=== PATIENT | male | born 1935 | race Caucasian/White ===

== ENCOUNTER 2018-02-05 14:16 | Inpatient (IN) | payer MEDICARE, MEDICAID ==
--- NOTE | 2018-02-05 14:40 | ED Physician Chart ---
ED Chief Complaint/HPI - Patient Information Date Seen:: 02/05/18 Time Seen:: 14:15 Chief Complaint:: Agitation History of Present Illness:: onset x 3 days of agitation and confusion; no report of trauma, LOC, H/As, S/T, SIs, neck pain, C/P, SOB, abd. Pain, A/N/V/D/C, fever, chills, or urinary s/s Historian:: Patient, Family Member Review:: Nurse's Note Reviewed, Old Chart Reviewed ED Review of Systems - Review of Systems General/Constitutional: No fever, No chills, No weight loss, No weakness, No diaphoresis, No edema, No loss of appetite Skin: No skin lesions, No rash, No bruising Head: No headache, No light-headedness Eyes: No loss of vision, No pain, No diplopia ENT: No earache, No nasal drainage, No sore throat, No tinnitus Neck: No neck pain, No swelling, No thyromegaly, No stiffness, No mass noted Cardio Vascular: No chest pain, No palpitations, No PND, No orthopnea, No edema Pulmonary: No SOB, No cough, No sputum, No wheezing GI: No nausea, No vomiting, No diarrhea, No pain, No melena, No hematochezia, No constipation, No hematemesis G/U: No dysuria, No frequency, No hematuria, No nacturia Musculoskeletal: No bone or joint pain, No back pain, No muscle pain Endocrine: No polyuria, No polydipsia Psychiatric: Prior psych history, Depression, Anxiety, No suicidal ideation, No homicidal ideation, Auditory hallucination, No visual hallucination Hematopoietic: No bruising, No lymphadenopathy Allergic/Immuno: No urticaria, No angioedema Neurological: No syncope, No focal symptoms, No weakness, No paresthesia, No headache, No seizure, No dizziness, Confusion, No vertigo ED Past Medical History - Past Medical History Obtainable: Yes Past Medical History: HTN, DM, Dyslipidemia, PUD/GERD, Dementia Family History: Diabetes Melitus, HTN Social History: Non Smoker, No Alcohol, No Drug Use, Surgical History: None Psychiatricy History: Schizophrenia, Bipolar, Dementia Medication: Reviewed Family Medical History - Family Member Mother History Unknown: Yes ED Physical Exam - Physical Examination General/Constitutional: Awake, Well-developed, well-nourished, Alert, No distress, GCS 15, Non-toxic appearing, Ambulatory Head: Atraumatic Eyes: Lids, conjuctiva normal, PERRL, EOMI Skin: Nl inspection, No rash, No skin lesions, No ecchymosis, Well hydrated, No lymphadenopathy ENMT: External ears, nose nl, TM canals nl, Nasal exam nl, Lips, teeth, gums nl , Oropharynx nl, Tonsils nl Neck: Nontender, Full ROM w/o pain, No JVD, No nuchal rigidity, No bruit, No mass, No stridor Respiratory: Nl effort/Exclusion, Clear to Auscultation, No Wheeze/Rhonchi/Rales Cardio Vascular: RRR, No murmur, gallop, rubs, NL S1 S2, Carotid/Femoral/Distal pulses equal bilaterally GI: No tenderness/rebounding/guarding, No organomegaly, No hernia, Normal BS's, Nondistended, No mass/bruits, No McBurney tenderness : No CVA tenderness Extremities: No tenderness or effusion, Full ROM, normal strength in all extremities, No edema, Normal digits & nails Neuro/Psych: Alert/oriented, DTR's symmetric, Normal sensory exam, Normal motor strength, Judgement/insight normal, Mood normal, Normal gait, No focal deficits Other Neuro/Psych comments:: + Psychomotor Agitation; no SIs; Mood/Affect: Labile Misc: Normal back, No paraspinal tenderness ED Labs/Radiology/EKG Results - Lab Results Comments:: Reviewed - EKG Interpretations EKG Time:: 14:37 Rate & Rhythm: 82; NSR Comments:: non-specific st-t changes ED Septic Shock - . Is Septic Shock (SBP<90, OR Lactate>4 mmol\L) present?: No ED Reassessment (Disposition) - Reassessment Reassessment Condition:: Improved - Diagnosis Diagnosis:: Agitation; Psychosis; Medical Clearance; Dementia; DM; Hyperglycemia; Dehydration; Bipolar Disorder - Aftercare/Follow up Instructions Aftercare/Follow-Up Instructions:: Counseled pt regarding lab results/diagnosis & need follow up, Counseled pt & family regarding lab results/diagnosis & need follow up - Patient Disposition Discharge/Transfer:: Acute Care w/in this hosp Admitted to:: [facility] Condition at Disposition:: Stable, Improved
[2018-02-05 14:59] LABS: % BASOPHILS 0.5 % (0.0-2.0); % EOSINOPHILS 3.8 % (0.0-5.0); % LYMPHOCYTES 26.2 % (20.0-50.0); % NEUTROPHILS 61.5 % (40.0-80.0); EOSINOPHILE ABSOLUTE 0.3 Th/cmm (0.1-0.4); HEMATOCRIT 37.4 % (41.0-60); HEMOGLOBIN 12.4 gm/dL (12-16); LYMPHOCYTE ABSOLUTE 1.7 Th/cmm (1.5-3.0); MEAN CORPUSCULAR HEMOGLOBIN 30.5 pg (27.0-31.0); MEAN CORPUSCULAR HGB CONC 33.1 pg (28.0-36.0); MEAN PLATELET VOLUME 8.7 fl; MONOCYTE ABSOLUTE 0.5 Th/cmm (0.3-1.0); NEUTROPHILE ABSOLUTE 4.1 Th/cmm (1.8-8.0); PLATELET COUNT 170 Th/cmm (150-400); RED BLOOD COUNT 4.06 Mil/cmm (3.80-5.80); RED CELL DISTRIBUTION WIDTH 12.5 % (11.5-20.0); WHITE BLOOD COUNT 6.6 Th/cmm (4.8-10.8)
[2018-02-05 15:09] LABS: ACETAMINOPHEN < 10.0 ug/mL (10.0-30.0); ALB/GLOB RATIO 1.3 (1.0-1.8); ALBUMIN 3.9 gm/dL (4.2-5.5); ALKALINE PHOSPHATASE 59 U/L (34-104); ANION GAP 13.2 (7.0-16.0); BILIRUBIN,TOTAL 0.4 mg/dL (0.3-1.0); BUN - UREA NITROGEN 30 mg/dL (7-25); CALCIUM SERUM 8.5 mg/dL (8.6-10.3); CARBON DIOXIDE 21.9 mEq/L (21.0-31.0); CHLORIDE 104 mEq/L (98-107); CHOLESTEROL 197 mg/dL (<200); CREATININE - SERUM 1.7 mg/dL (0.7-1.3); GLUCOSE 359 mg/dL (70-105); HDL -HIGH DENSITY LIPOPROTEIN 41 mg/dL (23-92); POTASSIUM SERUM 4.1 mEq/L (3.5-5.1); SALICYLATES (ASPIRIN) < 25.0 mg/L (30.0-100.0); SGOT 10 U/L (13-39); SGPT/ALT 8 U/L (7-52); SODIUM SERUM 135 mEq/L (136-145); TRIGLYCERIDES 252 mg/dL (<150)
[2018-02-05 15:29] LABS: URINE SOURCE CLEAN C
[2018-02-05 15:32] LABS: URINE BILIRUBIN NEGATIVE (NEGATIVE); URINE BLOOD TRACE (NEGATIVE); URINE GLUCOSE (UA) >=1000 mg/dL (NEGATIVE); URINE KETONE NEGATIVE (NEGATIVE); URINE LEUKOCYTE ESTERASE NEGATIVE (NEGATIVE); URINE MICROSCOPIC INDICATED? YES; URINE NITRATE NEGATIVE (NEGATIVE); URINE PROTEIN NEGATIVE (NEGATIVE); URINE UROBILINOGEN 0.2 E.U./dL (0.2 - 1.0)
[2018-02-05 15:36] LABS: URINE CLARITY CLEAR (CLEAR); URINE COLOR YELLOW
[2018-02-05 15:38] LABS: URINE AMORPHOUS SEDIMENT FEW URATES (NONE SEEN); URINE BACTERIA FEW /hpf (NONE SEEN); URINE EPITHELIAL CELLS FEW /lpf (FEW); URINE WBC 0-2 /hpf (0-5)
[2018-02-05 15:47] LABS: AMPHETAMINE URINE NEGATIVE (NEGATIVE); BARBITURATES URINE NEGATIVE (NEGATIVE); BENZODIAZEPINES QUAL URINE NEGATIVE (NEGATIVE); CANNABINOID THC NEGATIVE (NEGATIVE); COCAINE METABOLITE QUAL URINE NEGATIVE (NEGATIVE); METHADONE URINE NEGATIVE (NEGATIVE); METHAMPHETAMINES QUAL URINE NEGATIVE (NEGATIVE); OPIATES (MORPHINE) QUAL. URINE NEGATIVE (NEGATIVE); PHENCYCLIDINE (PCP) URINE NEGATIVE (NEGATIVE); TRICYCLICS (TCA) QUAL. URINE NEGATIVE (NEGATIVE)
[2018-02-05] MEDS ORDERED: INSULIN HUMAN REGULAR 100 UNITS/ML UNIT SUBQ ONE (15:49)
[2018-02-05] MEDS ORDERED: INSULIN ASPART, RECOMBINANT 100 UNITS/ML SUBQ ONE (15:59)
[2018-02-05] MEDS ORDERED: Magnesium Hydroxide (MOM) 30 mL UDC PO PRN (18:44)
[2018-02-05] MEDS ORDERED: Maalox 30 mL Cup PO PRN (18:44)
[2018-02-05 19:29] LABS: CHOLESTEROL 196 mg/dL (<200); HDL -HIGH DENSITY LIPOPROTEIN 42 mg/dL (23-92); TRIGLYCERIDES 249 mg/dL (<150)
--- NOTE | 2018-02-05 20:47 | History & Physical ---
ADMIT DATE: 02/05/2018 HISTORY OF PRESENT ILLNESS: The patient is an 82-year-old male with long history of diabetes mellitus, hypertension, hypothyroidism, benign prostatic hypertrophy, dementia; admitted to [facility] under Dr. Coronel's service for evaluation and treatment. The patient denies any chest pain, shortness of breath, nausea, vomiting, fever, or chills. PAST MEDICAL HISTORY: Significant for diabetes mellitus, hypertension, hypothyroidism, benign prostatic hypertrophy, dementia, and psychosis. PAST SURGICAL HISTORY: No recent surgery. ALLERGIES: None. MEDICATIONS: Follow admission reconciliation. SOCIAL HISTORY: Nonsmoker. No alcohol, no drugs. FAMILY HISTORY: Noncontributory. REVIEW OF SYSTEMS: RENAL SYSTEM: No history of chronic renal disorder. CARDIOVASCULAR SYSTEM: No coronary artery disease. ENDOCRINE: He has history of diabetes mellitus and hypothyroidism. GASTROINTESTINAL: No upper or lower gastrointestinal bleed. NEUROLOGICAL SYSTEM: No seizure disorder. SKELETOMUSCULAR SYSTEM: No muscular dystrophy. HEMATOLOGICAL SYSTEM: No bleeding tendency. RESPIRATORY SYSTEM: As asthma. GENITOURINARY SYSTEM: No dysuria or hematuria. PHYSICAL EXAMINATION: GENERAL: The patient is awake, alert, not fully oriented. VITAL SIGNS: Temperature 98.9, heart rate 76, and blood pressure 143/60. HEENT: Normocephalic. Pupils reactive to light and accommodation. Sclerae clear. NECK: Supple. Negative for lymphadenopathy, JVD, or bruit. CHEST: Entry of air bilateral normal. No rhonchi or wheezing. HEART: S1, S2 normal. No gallop rhythm. ABDOMEN: Soft, bowel sounds positive. EXTREMITIES: No edema. BACK: Normal vertebrae. SKIN: Intact. NEUROLOGIC: Awake, alert, mildly confused. No focal motor deficits. Cranial nerves II through XII are intact. ASSESSMENT: 1. Diabetes mellitus. 2. Hypertension. 3. Hypothyroidism. 4. Benign prostatic hypertrophy. 5. Dementia. 6. Psychosis. PLAN: The patient admitted to the hospital under Dr. Coronel's service. Problems addressed in hospitalization are dementia and psychosis. Problems to be addressed at discharge are hypertension, diabetes mellitus, hypothyroidism, benign prostatic hypertrophy, and the patient is medically stable for activity. Thank you, Dr. Coronel for asking me to see your patient. The patient is full code. The patient cleared for activity. [facility]# [id number]
[2018-02-05] MEDS: INSULIN ASPART SLIDING SCALE 100 UNITS/ML UNIT SUBQ SCH (21:25)
--- NOTE | 2018-02-06 03:15 | Psychiatric Evaluation ---
DATE OF SERVICE: 02/05/2018 Staff was spoke to. The patient is interviewed. IDENTIFYING DATA: The patient is an 82-year-old resident of [facility]. Information obtained directly interviewing the patient as well as reviewing the admission papers. JUSTIFICATION FOR HOSPITALIZATION: The patient is admitted for depression and changes in behavior. CHIEF COMPLAINT: "I am frustrated. "I don't know why I am here." HISTORY OF PRESENT ILLNESS: This is the first psychiatric hospitalization to [facility] for this 82-year-old who is reported to have been at the assisted living and is reported to have been getting easily upset, agitated, and the patient is getting frustrated. The patient has been diagnosed with depression and has been maintained on antidepressant medication. The patient has been admitted over here for stabilization. Sleep and appetite prior to the hospitalization are reported to be poor. PAST PSYCHIATRIC HISTORY: Details are not known. MEDICAL HISTORY: Physical examination is requested to be done by Dr. Shelton. SUBSTANCE ABUSE HISTORY: None. Physical examination requested by Dr. Paez. SUBSTANCE ABUSE HISTORY: None. PHYSICAL OR SEXUAL ABUSE HISTORY: None. LEGAL PROBLEMS: None at this time. STRENGTH AND ASSETS: The patient is motivated. MENTAL STATUS EXAMINATION: The patient is an 82-year-old, looking his stated age, superficially cooperative. Eye contact is poor. Mood is noted to be irritable. Affect is constricted. 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 He has been getting easily frustrated. Insight and judgment are very much limited. The patient's coping skills are noted to be very poor. DIAGNOSTIC IMPRESSION: AXIS 1: A. Depressive disorder, not otherwise specified. B. Dementia and behavioral change, secondary trait. AXIS II: None. AXIS III: As per the primary care physician. IMMEDIATE TREATMENT PLAN: The patient is going to be observed on inpatient unit, provided with supportive psychotherapy. The patient is going to be closely monitored. Once stabilized, the patient is going to be discharged to the family for followup on outpatient basis. JOB# [id number]
[2018-02-06] MEDS: Levothyroxine 0.05 Mg Tab PO SCH (06:42)
[2018-02-06] MEDS: INSULIN ASPART SLIDING SCALE 100 UNITS/ML UNIT SUBQ SCH ×4 (06:43→21:47)
[2018-02-06] MEDS ORDERED: Non-Formulary Item 1 EA (Sitagliptin Phosphate [Januvia] 100 MG) PO SCH (09:00)
[2018-02-06] MEDS ORDERED: GLIMEPIRIDE 1 MG PO SCH (09:00)
[2018-02-06] MEDS: Multivitamin Tab PO SCH (09:07)
[2018-02-06] MEDS: Escitalopram Oxalate 5 mg Tab PO SCH (09:08)
--- NOTE | 2018-02-06 10:11 | Progress Notes ---
DATE: 02/06/2018 SUBJECTIVE: Staff was spoken to. The patient is interviewed. Mood is noted to be depressed. Affect is constricted. The patient is isolative and withdrawn. Coping skills are noted to be poor. Sleep and appetite also noted to be very poor. The patient has been isolative and withdrawn at this time. ASSESSMENT: The patient is still depressed. PLAN: To continue the patient with supportive therapy. Encouraged the patient to verbalize the concerns rather than to act out. [facility]# [id number]
--- NOTE | 2018-02-06 20:16 | Internal Medicine Prog Note ---
Internal Medicine Subjective - Subjective Service Date: 02/06/18 Patient seen and examined:: with staff Patient is:: awake, verbal, arousable, in bed, talking, confused Per staff patient has:: no adverse event Internal Medicine Objective - Results Result Diagrams: 02/05/18 14:45 02/05/18 14:45 Recent Labs: Laboratory Last Values WBC 6.6 Th/cmm (4.8-10.8) 02/05/18 14:45 RBC 4.06 Mil/cmm (3.80-5.80) 02/05/18 14:45 Hgb 12.4 gm/dL (12-16) 02/05/18 14:45 Hct 37.4 % (41.0-60) L 02/05/18 14:45 MCV 92.0 fl (80-99) 02/05/18 14:45 MCH 30.5 pg (27.0-31.0) 02/05/18 14:45 MCHC Differential 33.1 pg (28.0-36.0) 02/05/18 14:45 RDW 12.5 % (11.5-20.0) 02/05/18 14:45 Plt Count 170 Th/cmm (150-400) 02/05/18 14:45 MPV 8.7 fl 02/05/18 14:45 Neutrophils % 61.5 % (40.0-80.0) 02/05/18 14:45 Lymphocytes % 26.2 % (20.0-50.0) 02/05/18 14:45 Monocytes % 8.0 % (2.0-10.0) 02/05/18 14:45 Eosinophils % 3.8 % (0.0-5.0) 02/05/18 14:45 Basophils % 0.5 % (0.0-2.0) 02/05/18 14:45 Sodium 135 mEq/L (136-145) L 02/05/18 14:45 Potassium 4.1 mEq/L (3.5-5.1) 02/05/18 14:45 Chloride 104 mEq/L (98-107) 02/05/18 14:45 Carbon Dioxide 21.9 mEq/L (21.0-31.0) 02/05/18 14:45 Anion Gap 13.2 (7.0-16.0) 02/05/18 14:45 BUN 30 mg/dL (7-25) H 02/05/18 14:45 Creatinine 1.7 mg/dL (0.7-1.3) H 02/05/18 14:45 Est GFR ( Amer) TNP 02/05/18 14:45 Est GFR (Non-Af Amer) TNP 02/05/18 14:45 BUN/Creatinine Ratio 17.6 02/05/18 14:45 Glucose 359 mg/dL (70-105) H 02/05/18 14:45 Calcium 8.5 mg/dL (8.6-10.3) L 02/05/18 14:45 Total Bilirubin 0.4 mg/dL (0.3-1.0) 02/05/18 14:45 AST 10 U/L (13-39) L 02/05/18 14:45 ALT 8 U/L (7-52) 02/05/18 14:45 Alkaline Phosphatase 59 U/L (34-104) 02/05/18 14:45 Troponin I 0.01 ng/mL (0.01-0.05) 02/05/18 14:45 Total Protein 7.0 gm/dL (6.0-8.3) 02/05/18 14:45 Albumin 3.9 gm/dL (4.2-5.5) L 02/05/18 14:45 Globulin 3.1 gm/dL 02/05/18 14:45 Albumin/Globulin Ratio 1.3 (1.0-1.8) 02/05/18 14:45 Triglycerides 249 mg/dL (<150) H 02/05/18 14:45 Cholesterol 196 mg/dL (<200) 02/05/18 14:45 LDL Cholesterol Direct 128 mg/dL (75-193) 02/05/18 14:45 HDL Cholesterol 42 mg/dL (23-92) 02/05/18 14:45 TSH 1.24 uIU/ml (0.34-5.60) 02/05/18 14:45 Urine Source CLEAN C 02/05/18 14:40 Urine Color YELLOW 02/05/18 14:40 Urine Clarity CLEAR (CLEAR) 02/05/18 14:40 Urine pH 6.0 (4.6 - 8.0) 02/05/18 14:40 Ur Specific [place] 1.020 (1.005-1.030) 02/05/18 14:40 Urine Protein NEGATIVE mg/dL (NEGATIVE) 02/05/18 14:40 Urine Glucose (UA) >=1000 mg/dL (NEGATIVE) H 02/05/18 14:40 Urine Ketones NEGATIVE mg/dL (NEGATIVE) 02/05/18 14:40 Urine Blood TRACE (NEGATIVE) 02/05/18 14:40 Urine Nitrate NEGATIVE (NEGATIVE) 02/05/18 14:40 Urine Bilirubin NEGATIVE (NEGATIVE) 02/05/18 14:40 Urine Urobilinogen 0.2 E.U./dL (0.2 - 1.0) 02/05/18 14:40 Ur Leukocyte Esterase NEGATIVE (NEGATIVE) 02/05/18 14:40 Urine RBC 2-5 /hpf (0-5) H 02/05/18 14:40 Urine WBC 0-2 /hpf (0-5) 02/05/18 14:40 Ur Epithelial Cells FEW /lpf (FEW) 02/05/18 14:40 Amorphous Sediment FEW URATES (NONE SEEN) 02/05/18 14:40 Urine Bacteria FEW /hpf (NONE SEEN) 02/05/18 14:40 Salicylates < 25.0 mg/L (30.0-100.0) L 02/05/18 14:45 Urine Opiates Screen NEGATIVE (NEGATIVE) 02/05/18 14:40 Urine Methadone Screen NEGATIVE (NEGATIVE) 02/05/18 14:40 Acetaminophen < 10.0 ug/mL (10.0-30.0) L 02/05/18 14:45 Ur Barbiturates Screen NEGATIVE (NEGATIVE) 02/05/18 14:40 Ur Tricyclics Screen NEGATIVE (NEGATIVE) 02/05/18 14:40 Ur Phencyclidine Scrn NEGATIVE (NEGATIVE) 02/05/18 14:40 Amphetamines Screen NEGATIVE (NEGATIVE) 02/05/18 14:40 U Methamphetamines Scrn NEGATIVE (NEGATIVE) 02/05/18 14:40 U Benzodiazepines Scrn NEGATIVE (NEGATIVE) 02/05/18 14:40 U Cocaine Metab Screen NEGATIVE (NEGATIVE) 02/05/18 14:40 U Cannabinoids Screen NEGATIVE (NEGATIVE) 02/05/18 14:40 Ethyl Alcohol < 10 mg/dL (0-10) 02/05/18 14:45 - Physical Exam Vitals and I&O: Vital Signs Temp 98.7 F 02/06/18 19:54 Pulse 87 02/06/18 19:54 Resp 20 02/06/18 19:54 BP 149/80 02/06/18 19:54 Pulse Ox 96 02/06/18 19:54 Intake & Output 02/06/18 02/06/18 02/07/18 06:59 18:59 06:59 Intake Total 480 240 120 Balance 480 240 120 Intake: Oral 480 240 120 Other: # Voids 2 2 3 # Bowel Movements 0 Active Medications: Current Medications Acetaminophen (Tylenol) 650 mg PO Q4HR PRN PRN Reason: Mild Pain / Temp above 100 Stop: 04/06/18 18:43 Al Hydrox/Mg Hydrox/Simethicone (Maalox) 30 ml PO Q4HR PRN PRN Reason: GI DISTRESS Stop: 04/06/18 18:43 Amlodipine Besylate (Norvasc) 10 mg PO DAILY [facility] Stop: 04/07/18 08:59 Last Admin: 02/06/18 09:08 Dose: 10 mg Brimonidine Tartrate (Alphagan 0.2% Ophth Soln) 1 drop EACH EYE BID [facility] Stop: 04/07/18 08:59 Last Admin: 02/06/18 17:28 Dose: Not Given Cilostazol (Pletal) 50 mg PO BID YUE Stop: 04/07/18 08:59 Last Admin: 02/06/18 17:28 Dose: 50 mg Escitalopram Oxalate (Lexapro) 5 mg PO DAILY [facility]; Protocol Stop: 04/07/18 08:59 Last Admin: 02/06/18 09:08 Dose: 5 mg Glimepiride (Amaryl) 1 mg PO DAILY [facility] Stop: 04/07/18 08:59 Last Admin: 02/06/18 09:07 Dose: 1 mg Insulin Aspart (Novolog Insulin Sliding Scale) 0 units SUBQ ACHS [facility]; Protocol Stop: 04/06/18 20:59 Last Admin: 02/06/18 16:28 Dose: 2 units Latanoprost (Xalatan 0.005% Ophth Soln) 1 drop EACH EYE DAILY [facility] Stop: 04/07/18 08:59 Last Admin: 02/06/18 09:09 Dose: Not Given Levothyroxine Sodium (Synthroid) 0.05 mg PO QDAC YUE Stop: 04/07/18 07:29 Last Admin: 02/06/18 06:42 Dose: 0.05 mg Lisinopril (Zestril) 10 mg PO DAILY YUE Stop: 04/07/18 08:59 Last Admin: 02/06/18 09:07 Dose: 10 mg Lorazepam (Ativan) 0.5 mg PO Q4HR PRN; Protocol PRN Reason: Agitation Stop: 03/07/18 18:43 Magnesium Hydroxide (Milk Of Magnesia) 30 ml PO HS PRN PRN Reason: Constipation Memantine (Namenda) 10 mg PO DAILY YUE Stop: 04/07/18 08:59 Last Admin: 02/06/18 09:08 Dose: 10 mg Miscellaneous (Neomycin/Polymyxin B Sulf/Hc [Adnwkmax-Uysq-Vg Eye Drops]) 1 drop RIGHT EYE DAILY YUE Stop: 04/07/18 08:59 Multivitamins/Vitamin C (Theragran) 1 tab PO DAILY YUE Stop: 04/07/18 08:59 Last Admin: 02/06/18 09:07 Dose: 1 tab Quetiapine Fumarate (Seroquel) 100 mg PO HS [facility]; Protocol Stop: 04/06/18 20:59 Last Admin: 02/05/18 21:25 Dose: 100 mg Sertraline HCl (Zoloft) 50 mg PO HS [facility] Stop: 04/06/18 20:59 Sitagliptin Phosphate (Januvia) 100 mg PO DAILY YUE Stop: 04/07/18 08:59 Last Admin: 02/06/18 09:08 Dose: 100 mg Tamsulosin HCl (Flomax) 0.4 mg PO DAILY YUE Stop: 04/07/18 08:59 Last Admin: 02/06/18 09:07 Dose: 0.4 mg Zolpidem Tartrate (Ambien) 5 mg PO HS PRN PRN Reason: Insomnia Stop: 04/06/18 18:43 General: demented HEENT: NC/AT, PERRLA, EOMI, anicteric sclerae, throat clear Neck: Supple, No JVD, No thyromegaly, +2 carotid pulse wo bruit, No LAD Lungs: CTAB Cardiovascular: RRR, Normal S1, Normal S2, without murmur Abdomen: soft, non-tender, non-distended Extremities: clear Neurological: no change Internal Medicine Assmt/Plan - Assessment Assessment: 1.HTN. 2.DM. 3.HYPOTHYROIDISM. 4.DEMENTIA. - Plan Plan: CONTINUE ON CURRENT MEDICATION AND DIET. Nutritional Asmnt/Malnutr-PDOC - Dietary Evaluation Malnutrition Findings (Please click <Entered> for more info): Nutritional Asmnt/Malnutrition Start: 02/06/18 15: 18 Text: Status: Complete Freq: Protocol: Document 02/06/18 15:30 DESIRE (Rec: 02/06/18 16:08 DESIRE TORRES) Nutritional Asmnt/Malnutrition Patient General Information Nutritional Screening High Risk Diagnosis psychosis Pertinent Medical Hx/Surgical Hx HTN, DM, dyslipidemia, PUD/ GERD, dementia, psychosis, hypothyroidism, benign prostatic hypertrophy Subjective Information BS 359 upon admission. Pt sleeping w/ lunch on table at time of visit. Per EMR, pt finished 100% of dinner last night. Asked RN who states pt ate very well for breakfast today. Current Diet Order/ Nutrition Support CCHO 60 gm Pertinent Medications maalox, novolog, synthroid, MOM, theragran, seroquel, Januvia Pertinent Labs 02/05: Na 135, glucose 359, BUN 30, Cr 1.7, Ca 8.5, Alb 3. 9, triglycerides 249-252 Nutritional Hx/Data Height 1.65 m Height (Calculated Centimeters) 165.1 Current Weight (lbs) 82.1 kg Weight (Calculated Kilograms) 82.1 Weight (Calculated Grams) 54942.2 Dodge Body Weight 136 lb Body Mass Index (BMI) 30.1 Weight Status Obese GI Symptoms GI Symptoms None Last BM none noted Difficult in: None Food Allergies No Skin Integrity/Comment: lon tran 22 Estimated Nutritional Goals BEE in Kcals: Adj wt of IBW Calories/Kcals/Kg 25-30 (based on adj wt 67 kg) Kcals Calculated Protein: Adj wt of IBW Protein g/k.0 Protein Calculated 67 g Fluid: ml (1 ml/kcal) Nutritional Problem 1. Problem Problem Altered nutrition related lab values Etiology hx of DM and dyslipidemia, electrolyte imbalance Signs/Symptoms: Na 135, glucose 359, Ca 8.5, triglycerides 249-252 Malnutrition Alert Is there a minimum of two criteria No selected? Query Text:Check all the applicable criteria. A minimum of two criteria are recommended for diagnosis of either severe or non-severe malnutrition. Malnutrition Related to Morbid Obesity Malnutrition related to morbid obesity No Intervention/Recommendation Comments 1. Continue with CCHO 60 gm diet as ordered and replace electrolytes as needed 2. Monitor PO intake, wt, labs and skin integrity 3. F/U as moderate risk in 3-5 days, 02/09-02/11 Expected Outcomes/Goals Expected Outcomes/Goals 1. PO intake to meet at least 75% of all meals 2. Wt stability, skin to remain intact, labs to approach normal limits reviewed by Keyana Sullivan
[2018-02-07] MEDS: INSULIN ASPART SLIDING SCALE 100 UNITS/ML UNIT SUBQ SCH ×5 (06:50→20:58)
[2018-02-07] MEDS: Levothyroxine 0.05 Mg Tab PO SCH (06:51)
[2018-02-07] MEDS: Multivitamin Tab PO SCH (08:47)
[2018-02-07] MEDS: Escitalopram Oxalate 5 mg Tab PO SCH (08:48)
[2018-02-07] MEDS: NEOMYCIN RIGHT EYE SCH ×2 (10:31→17:25)
[2018-02-07] MEDS: POLYMYXIN B SULF RIGHT EYE SCH ×2 (10:31→17:25)
[2018-02-07] MEDS: [UNRECOGNIZED DRUG - OTHER] RIGHT EYE SCH ×2 (10:31→17:25)
--- NOTE | 2018-02-07 11:40 | Progress Notes ---
DATE: 02/07/2018 SUBJECTIVE: Staff was spoken to. The patient is interviewed. Mood is noted to be depressed. Affect is constricted. The patient's family has been met last night. The patient's daughter has been spoken to in detail and they are looking for placement, possibly at [facility]. Insight and judgment at this time are noted to be still impaired. Impulse control is noted to be limited. Coping skills are noted to be limited. The patient is isolative and withdrawn. The patient is currently on citalopram 5 mg and has been able to tolerate the medication. The patient is not presenting with any side effects and the patient is stating that the medication is making him too sleepy at night time and the patient is going to be discontinued off of the Zoloft and going to be continued on the Lexapro and the patient's Seroquel is going to be slowly changed to 50 mg and the patient is going to be closely monitored. ASSESSMENT: The patient is still depressed. PLAN: To continue the patient with the supportive therapy. I encouraged the patient to verbalize the concerns rather than to act out. JOB# [id number]
--- NOTE | 2018-02-07 14:28 | Consultation ---
DATE OF CONSULTATION: 02/06/2018 REFERRING PHYSICIAN: Yola Coronel MD TYPE OF CONSULTATION: Psychology. HISTORY OF PRESENT ILLNESS: The patient is an 82-year-old male. The patient is a resident of [facility]. The patient is being admitted due to depression as well as behavioral disturbance. The following is by record review and by the patient's self-report. The patient stated that he does not know why he is being hospitalized. The patient appears to be easily frustrated. The staff at the patient's assisted living report that he has been getting easily agitated and frustrated. The patient has a history of depression and is currently maintained on antidepressant medication. The patient denied any suicidal ideation, plan or intention or any wish to . PAST MEDICAL HISTORY: Please see history and physical by Dr. Shelton. PAST PSYCHIATRIC HISTORY: As above. Details are unknown. SUBSTANCE ABUSE HISTORY: The patient denied any history of alcohol, tobacco or illicit drug use. PSYCHOSOCIAL HISTORY: The patient did not answer questions about occupational or educational history or gnosticist affiliation. However, the patient did nod his head that he is a Bahai. The patient denies any history of physical or sexual abuse and also denied any current legal problems. MENTAL STATUS EXAMINATION: The patient appears to be older than his stated age. Attitude is superficially cooperative. Eye contact is poor. Speech is slow with intermittent loud expressions. Mood is irritable. Affect is constricted. Thought process shows to be confused. The patient does not know why he is being hospitalized. The patient denied any suicidal ideation, plan or intention. He denies any auditory or visual hallucinations or delusions. The patient's behavior is easily frustrated. Impulse control is poor. Concentration is poor. The patient did not participate in the memory assessment. Sensorium is alert and oriented to self only. The patient did not participate in interpretation of proverbs. Insight is impaired. Judgment is compromised. DIAGNOSTIC IMPRESSION: Marrero I: 1. Depressive disorder, not otherwise specified. 2. Dementia with behavioral disturbance. Marrero II: Deferred. Marrero III: Please see history and physical by Dr. Shelton. TREATMENT PLAN: The patient has been seen by Dr. Coronel for psychiatric evaluation and for the management of the patient's psychotropic medications. We will provide supportive psychotherapy to include reality orientation, differentiation and integration. We will provide stress management to assist the patient in increasing his frustration tolerance and we will encourage him to verbalize his concerns. We will provide coping strategies for phase of life issues. We will encourage the patient to be able to demonstrate emotional and self-regulation prior to his discharge. We will provide motivational enhancement for the patient to become compliant and stay compliant with all aspects of his care and treatment. Thank you, Dr. Coronel for this consult and the opportunity to participate in this patient's care. [facility]# [id number] EFREN
--- NOTE | 2018-02-07 21:34 | Internal Medicine Prog Note ---
Internal Medicine Subjective - Subjective Service Date: 02/07/18 Patient seen and examined:: with staff Patient is:: awake, verbal, arousable, in bed, talking, confused Per staff patient has:: no adverse event Internal Medicine Objective - Results Result Diagrams: 02/05/18 14:45 02/05/18 14:45 Recent Labs: Laboratory Last Values WBC 6.6 Th/cmm (4.8-10.8) 02/05/18 14:45 RBC 4.06 Mil/cmm (3.80-5.80) 02/05/18 14:45 Hgb 12.4 gm/dL (12-16) 02/05/18 14:45 Hct 37.4 % (41.0-60) L 02/05/18 14:45 MCV 92.0 fl (80-99) 02/05/18 14:45 MCH 30.5 pg (27.0-31.0) 02/05/18 14:45 MCHC Differential 33.1 pg (28.0-36.0) 02/05/18 14:45 RDW 12.5 % (11.5-20.0) 02/05/18 14:45 Plt Count 170 Th/cmm (150-400) 02/05/18 14:45 MPV 8.7 fl 02/05/18 14:45 Neutrophils % 61.5 % (40.0-80.0) 02/05/18 14:45 Lymphocytes % 26.2 % (20.0-50.0) 02/05/18 14:45 Monocytes % 8.0 % (2.0-10.0) 02/05/18 14:45 Eosinophils % 3.8 % (0.0-5.0) 02/05/18 14:45 Basophils % 0.5 % (0.0-2.0) 02/05/18 14:45 Sodium 135 mEq/L (136-145) L 02/05/18 14:45 Potassium 4.1 mEq/L (3.5-5.1) 02/05/18 14:45 Chloride 104 mEq/L (98-107) 02/05/18 14:45 Carbon Dioxide 21.9 mEq/L (21.0-31.0) 02/05/18 14:45 Anion Gap 13.2 (7.0-16.0) 02/05/18 14:45 BUN 30 mg/dL (7-25) H 02/05/18 14:45 Creatinine 1.7 mg/dL (0.7-1.3) H 02/05/18 14:45 Est GFR ( Amer) TNP 02/05/18 14:45 Est GFR (Non-Af Amer) TNP 02/05/18 14:45 BUN/Creatinine Ratio 17.6 02/05/18 14:45 Glucose 359 mg/dL (70-105) H 02/05/18 14:45 Calcium 8.5 mg/dL (8.6-10.3) L 02/05/18 14:45 Total Bilirubin 0.4 mg/dL (0.3-1.0) 02/05/18 14:45 AST 10 U/L (13-39) L 02/05/18 14:45 ALT 8 U/L (7-52) 02/05/18 14:45 Alkaline Phosphatase 59 U/L (34-104) 02/05/18 14:45 Troponin I 0.01 ng/mL (0.01-0.05) 02/05/18 14:45 Total Protein 7.0 gm/dL (6.0-8.3) 02/05/18 14:45 Albumin 3.9 gm/dL (4.2-5.5) L 02/05/18 14:45 Globulin 3.1 gm/dL 02/05/18 14:45 Albumin/Globulin Ratio 1.3 (1.0-1.8) 02/05/18 14:45 Triglycerides 249 mg/dL (<150) H 02/05/18 14:45 Cholesterol 196 mg/dL (<200) 02/05/18 14:45 LDL Cholesterol Direct 128 mg/dL (75-193) 02/05/18 14:45 HDL Cholesterol 42 mg/dL (23-92) 02/05/18 14:45 TSH 1.24 uIU/ml (0.34-5.60) 02/05/18 14:45 Urine Source CLEAN C 02/05/18 14:40 Urine Color YELLOW 02/05/18 14:40 Urine Clarity CLEAR (CLEAR) 02/05/18 14:40 Urine pH 6.0 (4.6 - 8.0) 02/05/18 14:40 Ur Specific [place] 1.020 (1.005-1.030) 02/05/18 14:40 Urine Protein NEGATIVE mg/dL (NEGATIVE) 02/05/18 14:40 Urine Glucose (UA) >=1000 mg/dL (NEGATIVE) H 02/05/18 14:40 Urine Ketones NEGATIVE mg/dL (NEGATIVE) 02/05/18 14:40 Urine Blood TRACE (NEGATIVE) 02/05/18 14:40 Urine Nitrate NEGATIVE (NEGATIVE) 02/05/18 14:40 Urine Bilirubin NEGATIVE (NEGATIVE) 02/05/18 14:40 Urine Urobilinogen 0.2 E.U./dL (0.2 - 1.0) 02/05/18 14:40 Ur Leukocyte Esterase NEGATIVE (NEGATIVE) 02/05/18 14:40 Urine RBC 2-5 /hpf (0-5) H 02/05/18 14:40 Urine WBC 0-2 /hpf (0-5) 02/05/18 14:40 Ur Epithelial Cells FEW /lpf (FEW) 02/05/18 14:40 Amorphous Sediment FEW URATES (NONE SEEN) 02/05/18 14:40 Urine Bacteria FEW /hpf (NONE SEEN) 02/05/18 14:40 Salicylates < 25.0 mg/L (30.0-100.0) L 02/05/18 14:45 Urine Opiates Screen NEGATIVE (NEGATIVE) 02/05/18 14:40 Urine Methadone Screen NEGATIVE (NEGATIVE) 02/05/18 14:40 Acetaminophen < 10.0 ug/mL (10.0-30.0) L 02/05/18 14:45 Ur Barbiturates Screen NEGATIVE (NEGATIVE) 02/05/18 14:40 Ur Tricyclics Screen NEGATIVE (NEGATIVE) 02/05/18 14:40 Ur Phencyclidine Scrn NEGATIVE (NEGATIVE) 02/05/18 14:40 Amphetamines Screen NEGATIVE (NEGATIVE) 02/05/18 14:40 U Methamphetamines Scrn NEGATIVE (NEGATIVE) 02/05/18 14:40 U Benzodiazepines Scrn NEGATIVE (NEGATIVE) 02/05/18 14:40 U Cocaine Metab Screen NEGATIVE (NEGATIVE) 02/05/18 14:40 U Cannabinoids Screen NEGATIVE (NEGATIVE) 02/05/18 14:40 Ethyl Alcohol < 10 mg/dL (0-10) 02/05/18 14:45 - Physical Exam Vitals and I&O: Vital Signs Temp 98.1 F 02/07/18 19:39 Pulse 66 02/07/18 19:39 Resp 20 02/07/18 19:39 BP 131/67 02/07/18 19:39 Pulse Ox 97 02/07/18 19:39 Intake & Output 02/07/18 02/07/18 02/08/18 06:59 18:59 06:59 Intake Total 120 1500 240 Balance 120 1500 240 Intake: Oral 120 1500 240 Other: # Voids 3 3 1 # Bowel Movements 0 0 Active Medications: Current Medications Acetaminophen (Tylenol) 650 mg PO Q4HR PRN PRN Reason: Mild Pain / Temp above 100 Stop: 04/06/18 18:43 Al Hydrox/Mg Hydrox/Simethicone (Maalox) 30 ml PO Q4HR PRN PRN Reason: GI DISTRESS Stop: 04/06/18 18:43 Amlodipine Besylate (Norvasc) 10 mg PO DAILY [facility] Stop: 04/07/18 08:59 Last Admin: 02/07/18 10:48 Dose: Not Given Brimonidine Tartrate (Alphagan 0.2% Ophth Soln) 1 drop EACH EYE BID [facility] Stop: 04/07/18 08:59 Last Admin: 02/07/18 17:27 Dose: 1 drop Cilostazol (Pletal) 50 mg PO BID [facility] Stop: 04/07/18 08:59 Last Admin: 02/07/18 17:26 Dose: 50 mg Escitalopram Oxalate (Lexapro) 5 mg PO DAILY [facility]; Protocol Stop: 04/07/18 08:59 Last Admin: 02/07/18 08:48 Dose: 5 mg Glimepiride (Amaryl) 1 mg PO DAILY [facility] Stop: 04/07/18 08:59 Last Admin: 02/07/18 08:48 Dose: 1 mg Insulin Aspart (Novolog Insulin Sliding Scale) 0 units SUBQ ACHS [facility]; Protocol Stop: 04/06/18 20:59 Last Admin: 02/07/18 20:58 Dose: 6 units Latanoprost (Xalatan 0.005% Ophth Soln) 1 drop EACH EYE DAILY [facility] Stop: 04/07/18 08:59 Last Admin: 02/07/18 08:47 Dose: 1 drop Levothyroxine Sodium (Synthroid) 0.05 mg PO QDAC [facility] Stop: 04/07/18 07:29 Last Admin: 02/07/18 06:51 Dose: 0.05 mg Lisinopril (Zestril) 10 mg PO DAILY [facility] Stop: 04/07/18 08:59 Last Admin: 02/07/18 08:49 Dose: 10 mg Lorazepam (Ativan) 0.5 mg PO Q4HR PRN; Protocol PRN Reason: Agitation Stop: 03/07/18 18:43 Magnesium Hydroxide (Milk Of Magnesia) 30 ml PO HS PRN PRN Reason: Constipation Memantine (Namenda) 10 mg PO DAILY [facility] Stop: 04/07/18 08:59 Last Admin: 02/07/18 08:48 Dose: 10 mg Miscellaneous (Neomycin/Polymyxin B Sulf/Hc [Qauylkct-Fqnn-Ab Eye Drops]) 1 drop RIGHT EYE DAILY [facility] Stop: 04/07/18 08:59 Last Admin: 02/07/18 17:25 Dose: Not Given Multivitamins/Vitamin C (Theragran) 1 tab PO DAILY [facility] Stop: 04/07/18 08:59 Last Admin: 02/07/18 08:47 Dose: 1 tab Quetiapine Fumarate (Seroquel) 50 mg PO HS [facility]; Protocol Stop: 04/08/18 20:59 Last Admin: 02/07/18 21:02 Dose: 50 mg Sitagliptin Phosphate (Januvia) 100 mg PO DAILY [facility] Stop: 04/07/18 08:59 Last Admin: 02/07/18 08:48 Dose: 100 mg Tamsulosin HCl (Flomax) 0.4 mg PO DAILY [facility] Stop: 04/07/18 08:59 Last Admin: 02/07/18 08:47 Dose: 0.4 mg Zolpidem Tartrate (Ambien) 5 mg PO HS PRN PRN Reason: Insomnia Stop: 04/06/18 18:43 General: demented HEENT: NC/AT, PERRLA, EOMI, anicteric sclerae, throat clear Neck: Supple, No JVD, No thyromegaly, +2 carotid pulse wo bruit, No LAD Lungs: CTAB Cardiovascular: RRR, Normal S1, Normal S2, without murmur Abdomen: soft, non-tender, non-distended Extremities: clear Neurological: no change Internal Medicine Assmt/Plan - Assessment Assessment: 1.HTN. 2.DM. 3.HYPOTHYROIDISM. 4.DEMENTIA. - Plan Plan: CONTINUE ON CURRENT MEDICATION AND DIET. Nutritional Asmnt/Malnutr-PDOC - Dietary Evaluation Malnutrition Findings (Please click <Entered> for more info): Nutritional Asmnt/Malnutrition Start: 02/06/18 15: 18 Text: Status: Complete Freq: Protocol: Document 02/06/18 15:30 DESIRE (Rec: 02/06/18 16:08 DESIRE TORRES) Nutritional Asmnt/Malnutrition Patient General Information Nutritional Screening High Risk Diagnosis psychosis Pertinent Medical Hx/Surgical Hx HTN, DM, dyslipidemia, PUD/ GERD, dementia, psychosis, hypothyroidism, benign prostatic hypertrophy Subjective Information BS 359 upon admission. Pt sleeping w/ lunch on table at time of visit. Per EMR, pt finished 100% of dinner last night. Asked RN who states pt ate very well for breakfast today. Current Diet Order/ Nutrition Support CCHO 60 gm Pertinent Medications maalox, novolog, synthroid, MOM, theragran, seroquel, Januvia Pertinent Labs 02/05: Na 135, glucose 359, BUN 30, Cr 1.7, Ca 8.5, Alb 3. 9, triglycerides 249-252 Nutritional Hx/Data Height 1.65 m Height (Calculated Centimeters) 165.1 Current Weight (lbs) 82.1 kg Weight (Calculated Kilograms) 82.1 Weight (Calculated Grams) 46959.2 [place] Body Weight 136 lb Body Mass Index (BMI) 30.1 Weight Status Obese GI Symptoms GI Symptoms None Last BM none noted Difficult in: None Food Allergies No Skin Integrity/Comment: lon tran 22 Estimated Nutritional Goals BEE in Kcals: Adj wt of IBW Calories/Kcals/Kg 25-30 (based on adj wt 67 kg) Kcals Calculated Protein: Adj wt of IBW Protein g/k.0 Protein Calculated 67 g Fluid: ml (1 ml/kcal) Nutritional Problem 1. Problem Problem Altered nutrition related lab values Etiology hx of DM and dyslipidemia, electrolyte imbalance Signs/Symptoms: Na 135, glucose 359, Ca 8.5, triglycerides 249-252 Malnutrition Alert Is there a minimum of two criteria No selected? Query Text:Check all the applicable criteria. A minimum of two criteria are recommended for diagnosis of either severe or non-severe malnutrition. Malnutrition Related to Morbid Obesity Malnutrition related to morbid obesity No Intervention/Recommendation Comments 1. Continue with CCHO 60 gm diet as ordered and replace electrolytes as needed 2. Monitor PO intake, wt, labs and skin integrity 3. F/U as moderate risk in 3-5 days, 02/09-02/11 Expected Outcomes/Goals Expected Outcomes/Goals 1. PO intake to meet at least 75% of all meals 2. Wt stability, skin to remain intact, labs to approach normal limits reviewed by Keyana Sullivan
[2018-02-08] MEDS: Levothyroxine 0.05 Mg Tab PO SCH (06:30)
[2018-02-08] MEDS: INSULIN ASPART SLIDING SCALE 100 UNITS/ML UNIT SUBQ SCH ×4 (06:31→20:41)
[2018-02-08] MEDS: Escitalopram Oxalate 5 mg Tab PO SCH (08:46)
[2018-02-08] MEDS: Multivitamin Tab PO SCH (08:47)
[2018-02-08] MEDS: [UNRECOGNIZED DRUG - OTHER] RIGHT EYE SCH (09:00)
[2018-02-08] MEDS: NEOMYCIN RIGHT EYE SCH (09:00)
[2018-02-08] MEDS: POLYMYXIN B SULF RIGHT EYE SCH (09:00)
--- NOTE | 2018-02-08 21:36 | Internal Medicine Prog Note ---
Internal Medicine Subjective - Subjective Service Date: 02/08/18 Patient seen and examined:: without staff Patient is:: awake, verbal, arousable, in bed, talking, confused Per staff patient has:: no adverse event Internal Medicine Objective - Results Result Diagrams: 02/05/18 14:45 02/05/18 14:45 Recent Labs: Laboratory Last Values WBC 6.6 Th/cmm (4.8-10.8) 02/05/18 14:45 RBC 4.06 Mil/cmm (3.80-5.80) 02/05/18 14:45 Hgb 12.4 gm/dL (12-16) 02/05/18 14:45 Hct 37.4 % (41.0-60) L 02/05/18 14:45 MCV 92.0 fl (80-99) 02/05/18 14:45 MCH 30.5 pg (27.0-31.0) 02/05/18 14:45 MCHC Differential 33.1 pg (28.0-36.0) 02/05/18 14:45 RDW 12.5 % (11.5-20.0) 02/05/18 14:45 Plt Count 170 Th/cmm (150-400) 02/05/18 14:45 MPV 8.7 fl 02/05/18 14:45 Neutrophils % 61.5 % (40.0-80.0) 02/05/18 14:45 Lymphocytes % 26.2 % (20.0-50.0) 02/05/18 14:45 Monocytes % 8.0 % (2.0-10.0) 02/05/18 14:45 Eosinophils % 3.8 % (0.0-5.0) 02/05/18 14:45 Basophils % 0.5 % (0.0-2.0) 02/05/18 14:45 Sodium 135 mEq/L (136-145) L 02/05/18 14:45 Potassium 4.1 mEq/L (3.5-5.1) 02/05/18 14:45 Chloride 104 mEq/L (98-107) 02/05/18 14:45 Carbon Dioxide 21.9 mEq/L (21.0-31.0) 02/05/18 14:45 Anion Gap 13.2 (7.0-16.0) 02/05/18 14:45 BUN 30 mg/dL (7-25) H 02/05/18 14:45 Creatinine 1.7 mg/dL (0.7-1.3) H 02/05/18 14:45 Est GFR ( Amer) TNP 02/05/18 14:45 Est GFR (Non-Af Amer) TNP 02/05/18 14:45 BUN/Creatinine Ratio 17.6 02/05/18 14:45 Glucose 359 mg/dL (70-105) H 02/05/18 14:45 Calcium 8.5 mg/dL (8.6-10.3) L 02/05/18 14:45 Total Bilirubin 0.4 mg/dL (0.3-1.0) 02/05/18 14:45 AST 10 U/L (13-39) L 02/05/18 14:45 ALT 8 U/L (7-52) 02/05/18 14:45 Alkaline Phosphatase 59 U/L (34-104) 02/05/18 14:45 Troponin I 0.01 ng/mL (0.01-0.05) 02/05/18 14:45 Total Protein 7.0 gm/dL (6.0-8.3) 02/05/18 14:45 Albumin 3.9 gm/dL (4.2-5.5) L 02/05/18 14:45 Globulin 3.1 gm/dL 02/05/18 14:45 Albumin/Globulin Ratio 1.3 (1.0-1.8) 02/05/18 14:45 Triglycerides 249 mg/dL (<150) H 02/05/18 14:45 Cholesterol 196 mg/dL (<200) 02/05/18 14:45 LDL Cholesterol Direct 128 mg/dL (75-193) 02/05/18 14:45 HDL Cholesterol 42 mg/dL (23-92) 02/05/18 14:45 TSH 1.24 uIU/ml (0.34-5.60) 02/05/18 14:45 Urine Source CLEAN C 02/05/18 14:40 Urine Color YELLOW 02/05/18 14:40 Urine Clarity CLEAR (CLEAR) 02/05/18 14:40 Urine pH 6.0 (4.6 - 8.0) 02/05/18 14:40 Ur Specific [place] 1.020 (1.005-1.030) 02/05/18 14:40 Urine Protein NEGATIVE mg/dL (NEGATIVE) 02/05/18 14:40 Urine Glucose (UA) >=1000 mg/dL (NEGATIVE) H 02/05/18 14:40 Urine Ketones NEGATIVE mg/dL (NEGATIVE) 02/05/18 14:40 Urine Blood TRACE (NEGATIVE) 02/05/18 14:40 Urine Nitrate NEGATIVE (NEGATIVE) 02/05/18 14:40 Urine Bilirubin NEGATIVE (NEGATIVE) 02/05/18 14:40 Urine Urobilinogen 0.2 E.U./dL (0.2 - 1.0) 02/05/18 14:40 Ur Leukocyte Esterase NEGATIVE (NEGATIVE) 02/05/18 14:40 Urine RBC 2-5 /hpf (0-5) H 02/05/18 14:40 Urine WBC 0-2 /hpf (0-5) 02/05/18 14:40 Ur Epithelial Cells FEW /lpf (FEW) 02/05/18 14:40 Amorphous Sediment FEW URATES (NONE SEEN) 02/05/18 14:40 Urine Bacteria FEW /hpf (NONE SEEN) 02/05/18 14:40 Salicylates < 25.0 mg/L (30.0-100.0) L 02/05/18 14:45 Urine Opiates Screen NEGATIVE (NEGATIVE) 02/05/18 14:40 Urine Methadone Screen NEGATIVE (NEGATIVE) 02/05/18 14:40 Acetaminophen < 10.0 ug/mL (10.0-30.0) L 02/05/18 14:45 Ur Barbiturates Screen NEGATIVE (NEGATIVE) 02/05/18 14:40 Ur Tricyclics Screen NEGATIVE (NEGATIVE) 02/05/18 14:40 Ur Phencyclidine Scrn NEGATIVE (NEGATIVE) 02/05/18 14:40 Amphetamines Screen NEGATIVE (NEGATIVE) 02/05/18 14:40 U Methamphetamines Scrn NEGATIVE (NEGATIVE) 02/05/18 14:40 U Benzodiazepines Scrn NEGATIVE (NEGATIVE) 02/05/18 14:40 U Cocaine Metab Screen NEGATIVE (NEGATIVE) 02/05/18 14:40 U Cannabinoids Screen NEGATIVE (NEGATIVE) 02/05/18 14:40 Ethyl Alcohol < 10 mg/dL (0-10) 02/05/18 14:45 RPR NONREACTIVE (NONREACTIVE) 02/05/18 14:45 - Physical Exam Vitals and I&O: Vital Signs Temp 98.6 F 02/08/18 14:00 Pulse 84 02/08/18 21:25 Resp 18 02/08/18 21:25 BP 129/70 02/08/18 21:25 Pulse Ox 97 02/08/18 21:25 Intake & Output 02/08/18 02/08/18 02/09/18 06:59 18:59 06:59 Intake Total 480 1000 Balance 480 1000 Intake: Oral 480 1000 Other: # Voids 2 4 # Bowel Movements 1 Active Medications: Current Medications Acetaminophen (Tylenol) 650 mg PO Q4HR PRN PRN Reason: Mild Pain / Temp above 100 Stop: 04/06/18 18:43 Al Hydrox/Mg Hydrox/Simethicone (Maalox) 30 ml PO Q4HR PRN PRN Reason: GI DISTRESS Stop: 04/06/18 18:43 Amlodipine Besylate (Norvasc) 10 mg PO DAILY [facility] Stop: 04/07/18 08:59 Last Admin: 02/08/18 08:44 Dose: 10 mg Brimonidine Tartrate (Alphagan 0.2% Ophth Soln) 1 drop EACH EYE BID [facility] Stop: 04/07/18 08:59 Last Admin: 02/08/18 08:44 Dose: 1 drop Cilostazol (Pletal) 50 mg PO BID [facility] Stop: 04/07/18 08:59 Last Admin: 02/08/18 08:54 Dose: 50 mg Escitalopram Oxalate (Lexapro) 5 mg PO DAILY [facility]; Protocol Stop: 04/07/18 08:59 Last Admin: 02/08/18 08:46 Dose: 5 mg Glimepiride (Amaryl) 1 mg PO DAILY [facility] Stop: 04/07/18 08:59 Last Admin: 02/08/18 08:48 Dose: 1 mg Insulin Aspart (Novolog Insulin Sliding Scale) 0 units SUBQ ACHS [facility]; Protocol Stop: 04/06/18 20:59 Last Admin: 02/08/18 20:41 Dose: 2 units Latanoprost (Xalatan 0.005% Ophth Soln) 1 drop EACH EYE DAILY [facility] Stop: 04/07/18 08:59 Last Admin: 02/08/18 08:44 Dose: 1 drop Levothyroxine Sodium (Synthroid) 0.05 mg PO QDAC [facility] Stop: 04/07/18 07:29 Last Admin: 02/08/18 06:30 Dose: 0.05 mg Lisinopril (Zestril) 10 mg PO DAILY [facility] Stop: 04/07/18 08:59 Last Admin: 02/08/18 08:46 Dose: 10 mg Lorazepam (Ativan) 0.5 mg PO Q4HR PRN; Protocol PRN Reason: Agitation Stop: 03/07/18 18:43 Magnesium Hydroxide (Milk Of Magnesia) 30 ml PO HS PRN PRN Reason: Constipation Memantine (Namenda) 10 mg PO DAILY [facility] Stop: 04/07/18 08:59 Last Admin: 02/08/18 08:46 Dose: 10 mg Miscellaneous (Neomycin/Polymyxin B Sulf/Hc [Pbykrkjs-Bhvx-Fr Eye Drops]) 1 drop RIGHT EYE DAILY [facility] Stop: 04/07/18 08:59 Last Admin: 02/08/18 09:00 Dose: Not Given Multivitamins/Vitamin C (Theragran) 1 tab PO DAILY [facility] Stop: 04/07/18 08:59 Last Admin: 02/08/18 08:47 Dose: 1 tab Mupirocin (Bactroban Oint) 1 appl NS BID [facility] Stop: 02/13/18 17:01 Quetiapine Fumarate (Seroquel) 25 mg PO HS [facility]; Protocol Stop: 04/09/18 20:59 Last Admin: 02/08/18 20:41 Dose: 25 mg Sitagliptin Phosphate (Januvia) 100 mg PO DAILY [facility] Stop: 04/07/18 08:59 Last Admin: 02/08/18 08:45 Dose: 100 mg Tamsulosin HCl (Flomax) 0.4 mg PO DAILY [facility] Stop: 04/07/18 08:59 Last Admin: 02/08/18 08:46 Dose: 0.4 mg Zolpidem Tartrate (Ambien) 5 mg PO HS PRN PRN Reason: Insomnia Stop: 04/06/18 18:43 General: demented HEENT: NC/AT, PERRLA, EOMI, anicteric sclerae, throat clear Neck: Supple, No JVD, No thyromegaly, +2 carotid pulse wo bruit, No LAD Lungs: CTAB Cardiovascular: RRR, Normal S1, Normal S2, without murmur Abdomen: soft, non-tender, non-distended Extremities: clear Neurological: no change Internal Medicine Assmt/Plan - Assessment Assessment: 1.HTN. 2.DM. 3.HYPOTHYROIDISM. 4.DEMENTIA. - Plan Plan: CONTINUE ON CURRENT MEDICATION AND DIET. Nutritional Asmnt/Malnutr-PDOC - Dietary Evaluation Malnutrition Findings (Please click <Entered> for more info): Nutritional Asmnt/Malnutrition Start: 02/06/18 15: 18 Text: Status: Complete Freq: Protocol: Document 02/06/18 15:30 GURMEETVIRIDIANA (Rec: 02/06/18 16:08 DESIRE TORRES) Nutritional Asmnt/Malnutrition Patient General Information Nutritional Screening High Risk Diagnosis psychosis Pertinent Medical Hx/Surgical Hx HTN, DM, dyslipidemia, PUD/ GERD, dementia, psychosis, hypothyroidism, benign prostatic hypertrophy Subjective Information BS 359 upon admission. Pt sleeping w/ lunch on table at time of visit. Per EMR, pt finished 100% of dinner last night. Asked RN who states pt ate very well for breakfast today. Current Diet Order/ Nutrition Support CCHO 60 gm Pertinent Medications maalox, novolog, synthroid, MOM, theragran, seroquel, Januvia Pertinent Labs 02/05: Na 135, glucose 359, BUN 30, Cr 1.7, Ca 8.5, Alb 3. 9, triglycerides 249-252 Nutritional Hx/Data Height 1.65 m Height (Calculated Centimeters) 165.1 Current Weight (lbs) 82.1 kg Weight (Calculated Kilograms) 82.1 Weight (Calculated Grams) 65138.2 [place] Body Weight 136 lb Body Mass Index (BMI) 30.1 Weight Status Obese GI Symptoms GI Symptoms None Last BM none noted Difficult in: None Food Allergies No Skin Integrity/Comment: lon tran 22 Estimated Nutritional Goals BEE in Kcals: Adj wt of IBW Calories/Kcals/Kg 25-30 (based on adj wt 67 kg) Kcals Calculated Protein: Adj wt of IBW Protein g/k.0 Protein Calculated 67 g Fluid: ml (1 ml/kcal) Nutritional Problem 1. Problem Problem Altered nutrition related lab values Etiology hx of DM and dyslipidemia, electrolyte imbalance Signs/Symptoms: Na 135, glucose 359, Ca 8.5, triglycerides 249-252 Malnutrition Alert Is there a minimum of two criteria No selected? Query Text:Check all the applicable criteria. A minimum of two criteria are recommended for diagnosis of either severe or non-severe malnutrition. Malnutrition Related to Morbid Obesity Malnutrition related to morbid obesity No Intervention/Recommendation Comments 1. Continue with CCHO 60 gm diet as ordered and replace electrolytes as needed 2. Monitor PO intake, wt, labs and skin integrity 3. F/U as moderate risk in 3-5 days, 02/09-02/11 Expected Outcomes/Goals Expected Outcomes/Goals 1. PO intake to meet at least 75% of all meals 2. Wt stability, skin to remain intact, labs to approach normal limits reviewed by Keyana Sullivan
--- NOTE | 2018-02-09 03:27 | Progress Notes ---
DATE: 02/08/2018 SUBJECTIVE: Staff was spoken to. The patient is interviewed. Mood is noted to be depressed. Affect is constricted. The patient's coping skills are noted to be poor. The patient is isolative and withdrawn. The patient has been having a difficult time to verbalize the concerns. The patient has been on 50 mg of the Seroquel at night time and has been able to tolerate it and I am planning to gradually decrease the dose on the Seroquel to 25 mg because of the drowsiness and I am planning to continue the low dose of the Lexapro and will be following the patient with the supportive therapy. JOB# [id number]
[2018-02-09] MEDS: INSULIN ASPART SLIDING SCALE 100 UNITS/ML UNIT SUBQ SCH ×4 (06:47→21:09)
[2018-02-09] MEDS: Levothyroxine 0.05 Mg Tab PO SCH (06:47)
[2018-02-09] MEDS: Multivitamin Tab PO SCH (08:41)
[2018-02-09] MEDS: Escitalopram Oxalate 5 mg Tab PO SCH (08:42)
[2018-02-09] MEDS: [UNRECOGNIZED DRUG - OTHER] RIGHT EYE SCH (11:21)
[2018-02-09] MEDS: POLYMYXIN B SULF RIGHT EYE SCH (11:21)
[2018-02-09] MEDS: NEOMYCIN RIGHT EYE SCH (11:21)
--- NOTE | 2018-02-09 14:22 | Progress Notes ---
DATE: 02/09/2018 SUBJECTIVE: Staff was spoken to. The patient is interviewed. Mood is noted to be anxious. The patient's coping skills are noted to be poor. The patient has been pacing most of the time on the unit. Insight and judgment are noted to be still impaired. Impulse control seems to be limited. ASSESSMENT: The patient is impulsive and aggressive today. PLAN: To continue the patient with the supportive therapy. Encouraged the patient to vocalize the concerns rather than to act out. JOB# [id number]
--- NOTE | 2018-02-09 15:30 | Internal Medicine Prog Note ---
Internal Medicine Subjective - Subjective Service Date: 02/09/18 Patient seen and examined:: with staff Patient is:: awake, verbal, arousable, in bed, talking, confused Per staff patient has:: no adverse event Internal Medicine Objective - Results Result Diagrams: 02/05/18 14:45 02/05/18 14:45 Recent Labs: Laboratory Last Values WBC 6.6 Th/cmm (4.8-10.8) 02/05/18 14:45 RBC 4.06 Mil/cmm (3.80-5.80) 02/05/18 14:45 Hgb 12.4 gm/dL (12-16) 02/05/18 14:45 Hct 37.4 % (41.0-60) L 02/05/18 14:45 MCV 92.0 fl (80-99) 02/05/18 14:45 MCH 30.5 pg (27.0-31.0) 02/05/18 14:45 MCHC Differential 33.1 pg (28.0-36.0) 02/05/18 14:45 RDW 12.5 % (11.5-20.0) 02/05/18 14:45 Plt Count 170 Th/cmm (150-400) 02/05/18 14:45 MPV 8.7 fl 02/05/18 14:45 Neutrophils % 61.5 % (40.0-80.0) 02/05/18 14:45 Lymphocytes % 26.2 % (20.0-50.0) 02/05/18 14:45 Monocytes % 8.0 % (2.0-10.0) 02/05/18 14:45 Eosinophils % 3.8 % (0.0-5.0) 02/05/18 14:45 Basophils % 0.5 % (0.0-2.0) 02/05/18 14:45 Sodium 135 mEq/L (136-145) L 02/05/18 14:45 Potassium 4.1 mEq/L (3.5-5.1) 02/05/18 14:45 Chloride 104 mEq/L (98-107) 02/05/18 14:45 Carbon Dioxide 21.9 mEq/L (21.0-31.0) 02/05/18 14:45 Anion Gap 13.2 (7.0-16.0) 02/05/18 14:45 BUN 30 mg/dL (7-25) H 02/05/18 14:45 Creatinine 1.7 mg/dL (0.7-1.3) H 02/05/18 14:45 Est GFR ( Amer) TNP 02/05/18 14:45 Est GFR (Non-Af Amer) TNP 02/05/18 14:45 BUN/Creatinine Ratio 17.6 02/05/18 14:45 Glucose 359 mg/dL (70-105) H 02/05/18 14:45 Calcium 8.5 mg/dL (8.6-10.3) L 02/05/18 14:45 Total Bilirubin 0.4 mg/dL (0.3-1.0) 02/05/18 14:45 AST 10 U/L (13-39) L 02/05/18 14:45 ALT 8 U/L (7-52) 02/05/18 14:45 Alkaline Phosphatase 59 U/L (34-104) 02/05/18 14:45 Troponin I 0.01 ng/mL (0.01-0.05) 02/05/18 14:45 Total Protein 7.0 gm/dL (6.0-8.3) 02/05/18 14:45 Albumin 3.9 gm/dL (4.2-5.5) L 02/05/18 14:45 Globulin 3.1 gm/dL 02/05/18 14:45 Albumin/Globulin Ratio 1.3 (1.0-1.8) 02/05/18 14:45 Triglycerides 249 mg/dL (<150) H 02/05/18 14:45 Cholesterol 196 mg/dL (<200) 02/05/18 14:45 LDL Cholesterol Direct 128 mg/dL (75-193) 02/05/18 14:45 HDL Cholesterol 42 mg/dL (23-92) 02/05/18 14:45 TSH 1.24 uIU/ml (0.34-5.60) 02/05/18 14:45 Urine Source CLEAN C 02/05/18 14:40 Urine Color YELLOW 02/05/18 14:40 Urine Clarity CLEAR (CLEAR) 02/05/18 14:40 Urine pH 6.0 (4.6 - 8.0) 02/05/18 14:40 Ur Specific [place] 1.020 (1.005-1.030) 02/05/18 14:40 Urine Protein NEGATIVE mg/dL (NEGATIVE) 02/05/18 14:40 Urine Glucose (UA) >=1000 mg/dL (NEGATIVE) H 02/05/18 14:40 Urine Ketones NEGATIVE mg/dL (NEGATIVE) 02/05/18 14:40 Urine Blood TRACE (NEGATIVE) 02/05/18 14:40 Urine Nitrate NEGATIVE (NEGATIVE) 02/05/18 14:40 Urine Bilirubin NEGATIVE (NEGATIVE) 02/05/18 14:40 Urine Urobilinogen 0.2 E.U./dL (0.2 - 1.0) 02/05/18 14:40 Ur Leukocyte Esterase NEGATIVE (NEGATIVE) 02/05/18 14:40 Urine RBC 2-5 /hpf (0-5) H 02/05/18 14:40 Urine WBC 0-2 /hpf (0-5) 02/05/18 14:40 Ur Epithelial Cells FEW /lpf (FEW) 02/05/18 14:40 Amorphous Sediment FEW URATES (NONE SEEN) 02/05/18 14:40 Urine Bacteria FEW /hpf (NONE SEEN) 02/05/18 14:40 Salicylates < 25.0 mg/L (30.0-100.0) L 02/05/18 14:45 Urine Opiates Screen NEGATIVE (NEGATIVE) 02/05/18 14:40 Urine Methadone Screen NEGATIVE (NEGATIVE) 02/05/18 14:40 Acetaminophen < 10.0 ug/mL (10.0-30.0) L 02/05/18 14:45 Ur Barbiturates Screen NEGATIVE (NEGATIVE) 02/05/18 14:40 Ur Tricyclics Screen NEGATIVE (NEGATIVE) 02/05/18 14:40 Ur Phencyclidine Scrn NEGATIVE (NEGATIVE) 02/05/18 14:40 Amphetamines Screen NEGATIVE (NEGATIVE) 02/05/18 14:40 U Methamphetamines Scrn NEGATIVE (NEGATIVE) 02/05/18 14:40 U Benzodiazepines Scrn NEGATIVE (NEGATIVE) 02/05/18 14:40 U Cocaine Metab Screen NEGATIVE (NEGATIVE) 02/05/18 14:40 U Cannabinoids Screen NEGATIVE (NEGATIVE) 02/05/18 14:40 Ethyl Alcohol < 10 mg/dL (0-10) 02/05/18 14:45 RPR NONREACTIVE (NONREACTIVE) 02/05/18 14:45 - Physical Exam Vitals and I&O: Vital Signs Temp 98.8 F 02/09/18 14:00 Pulse 72 02/09/18 14:00 Resp 18 02/09/18 14:00 BP 116/67 02/09/18 14:00 Pulse Ox 97 02/09/18 14:00 Intake & Output 02/08/18 02/09/18 02/09/18 18:59 06:59 18:59 Intake Total 1000 Balance 1000 Intake: Oral 1000 Other: # Voids 4 # Bowel Movements 1 Active Medications: Current Medications Acetaminophen (Tylenol) 650 mg PO Q4HR PRN PRN Reason: Mild Pain / Temp above 100 Stop: 04/06/18 18:43 Al Hydrox/Mg Hydrox/Simethicone (Maalox) 30 ml PO Q4HR PRN PRN Reason: GI DISTRESS Stop: 04/06/18 18:43 Amlodipine Besylate (Norvasc) 10 mg PO DAILY [facility] Stop: 04/07/18 08:59 Last Admin: 02/09/18 08:42 Dose: 10 mg Brimonidine Tartrate (Alphagan 0.2% Ophth Soln) 1 drop EACH EYE BID [facility] Stop: 04/07/18 08:59 Last Admin: 02/09/18 08:43 Dose: 1 drop Cilostazol (Pletal) 50 mg PO BID [facility] Stop: 04/07/18 08:59 Last Admin: 02/09/18 08:47 Dose: 50 mg Escitalopram Oxalate (Lexapro) 5 mg PO DAILY [facility]; Protocol Stop: 04/07/18 08:59 Last Admin: 02/09/18 08:42 Dose: 5 mg Glimepiride (Amaryl) 1 mg PO DAILY [facility] Stop: 04/07/18 08:59 Last Admin: 02/09/18 08:42 Dose: 1 mg Insulin Aspart (Novolog Insulin Sliding Scale) 0 units SUBQ ACHS [facility]; Protocol Stop: 04/06/18 20:59 Last Admin: 02/09/18 11:18 Dose: 2 units Latanoprost (Xalatan 0.005% Ophth Soln) 1 drop EACH EYE DAILY [facility] Stop: 04/07/18 08:59 Last Admin: 02/09/18 08:43 Dose: 1 drop Levothyroxine Sodium (Synthroid) 0.05 mg PO QDAC [facility] Stop: 04/07/18 07:29 Last Admin: 02/09/18 06:47 Dose: 0.05 mg Lisinopril (Zestril) 10 mg PO DAILY [facility] Stop: 04/07/18 08:59 Last Admin: 02/09/18 08:43 Dose: 10 mg Lorazepam (Ativan) 0.5 mg PO Q4HR PRN; Protocol PRN Reason: Agitation Stop: 03/07/18 18:43 Magnesium Hydroxide (Milk Of Magnesia) 30 ml PO HS PRN PRN Reason: Constipation Memantine (Namenda) 10 mg PO DAILY [facility] Stop: 04/07/18 08:59 Last Admin: 02/09/18 08:42 Dose: 10 mg Miscellaneous (Neomycin/Polymyxin B Sulf/Hc [Qspgticb-Fmnn-En Eye Drops]) 1 drop RIGHT EYE DAILY [facility] Stop: 04/07/18 08:59 Last Admin: 02/09/18 11:21 Dose: Not Given Multivitamins/Vitamin C (Theragran) 1 tab PO DAILY [facility] Stop: 04/07/18 08:59 Last Admin: 02/09/18 08:41 Dose: 1 tab Mupirocin (Bactroban Oint) 1 appl NS BID [facility] Stop: 02/13/18 17:01 Last Admin: 02/09/18 08:48 Dose: 1 appl Quetiapine Fumarate (Seroquel) 25 mg PO HS [facility]; Protocol Stop: 04/09/18 20:59 Last Admin: 02/08/18 20:41 Dose: 25 mg Sitagliptin Phosphate (Januvia) 100 mg PO DAILY [facility] Stop: 04/07/18 08:59 Last Admin: 02/09/18 08:42 Dose: 100 mg Tamsulosin HCl (Flomax) 0.4 mg PO DAILY [facility] Stop: 04/07/18 08:59 Last Admin: 02/09/18 08:41 Dose: 0.4 mg Zolpidem Tartrate (Ambien) 5 mg PO HS PRN PRN Reason: Insomnia Stop: 04/06/18 18:43 General: demented HEENT: NC/AT, PERRLA, EOMI, anicteric sclerae, throat clear Neck: Supple, No JVD, No thyromegaly, +2 carotid pulse wo bruit, No LAD Lungs: CTAB Cardiovascular: RRR, Normal S1, Normal S2, without murmur Abdomen: soft, non-tender, non-distended Extremities: clear Neurological: no change Internal Medicine Assmt/Plan - Assessment Assessment: 1.HTN. 2.DM. 3.HYPOTHYROIDISM. 4.DEMENTIA. - Plan Plan: CONTINUE ON CURRENT MEDICATION AND DIET. Nutritional Asmnt/Malnutr-PDOC - Dietary Evaluation Malnutrition Findings (Please click <Entered> for more info): Nutritional Asmnt/Malnutrition Start: 02/06/18 15: 18 Text: Status: Complete Freq: Protocol: Document 02/06/18 15:30 DESIRE (Rec: 02/06/18 16:08 DESIRE TORRES) Nutritional Asmnt/Malnutrition Patient General Information Nutritional Screening High Risk Diagnosis psychosis Pertinent Medical Hx/Surgical Hx HTN, DM, dyslipidemia, PUD/ GERD, dementia, psychosis, hypothyroidism, benign prostatic hypertrophy Subjective Information BS 359 upon admission. Pt sleeping w/ lunch on table at time of visit. Per EMR, pt finished 100% of dinner last night. Asked RN who states pt ate very well for breakfast today. Current Diet Order/ Nutrition Support CCHO 60 gm Pertinent Medications maalox, novolog, synthroid, MOM, theragran, seroquel, Januvia Pertinent Labs 02/05: Na 135, glucose 359, BUN 30, Cr 1.7, Ca 8.5, Alb 3. 9, triglycerides 249-252 Nutritional Hx/Data Height 1.65 m Height (Calculated Centimeters) 165.1 Current Weight (lbs) 82.1 kg Weight (Calculated Kilograms) 82.1 Weight (Calculated Grams) 65457.2 [place] Body Weight 136 lb Body Mass Index (BMI) 30.1 Weight Status Obese GI Symptoms GI Symptoms None Last BM none noted Difficult in: None Food Allergies No Skin Integrity/Comment: lon tran 22 Estimated Nutritional Goals BEE in Kcals: Adj wt of IBW Calories/Kcals/Kg 25-30 (based on adj wt 67 kg) Kcals Calculated Protein: Adj wt of IBW Protein g/k.0 Protein Calculated 67 g Fluid: ml (1 ml/kcal) Nutritional Problem 1. Problem Problem Altered nutrition related lab values Etiology hx of DM and dyslipidemia, electrolyte imbalance Signs/Symptoms: Na 135, glucose 359, Ca 8.5, triglycerides 249-252 Malnutrition Alert Is there a minimum of two criteria No selected? Query Text:Check all the applicable criteria. A minimum of two criteria are recommended for diagnosis of either severe or non-severe malnutrition. Malnutrition Related to Morbid Obesity Malnutrition related to morbid obesity No Intervention/Recommendation Comments 1. Continue with CCHO 60 gm diet as ordered and replace electrolytes as needed 2. Monitor PO intake, wt, labs and skin integrity 3. F/U as moderate risk in 3-5 days, 02/09-02/11 Expected Outcomes/Goals Expected Outcomes/Goals 1. PO intake to meet at least 75% of all meals 2. Wt stability, skin to remain intact, labs to approach normal limits reviewed by Keyana Sullivan
[2018-02-10] MEDS: INSULIN ASPART SLIDING SCALE 100 UNITS/ML UNIT SUBQ SCH ×4 (06:34→20:14)
[2018-02-10] MEDS: Levothyroxine 0.05 Mg Tab PO SCH (06:35)
[2018-02-10] MEDS: Multivitamin Tab PO SCH (08:33)
[2018-02-10] MEDS: Escitalopram Oxalate 5 mg Tab PO SCH (08:33)
[2018-02-10] MEDS: POLYMYXIN B SULF RIGHT EYE SCH (08:42)
[2018-02-10] MEDS: [UNRECOGNIZED DRUG - OTHER] RIGHT EYE SCH (08:42)
[2018-02-10] MEDS: NEOMYCIN RIGHT EYE SCH (08:42)
--- NOTE | 2018-02-10 19:26 | Internal Medicine Prog Note ---
Internal Medicine Subjective - Subjective Service Date: 02/10/18 Patient seen and examined:: without staff Patient is:: awake, verbal, arousable, in bed, talking, confused Per staff patient has:: no adverse event Internal Medicine Objective - Results Result Diagrams: 02/05/18 14:45 02/05/18 14:45 Recent Labs: Laboratory Last Values WBC 6.6 Th/cmm (4.8-10.8) 02/05/18 14:45 RBC 4.06 Mil/cmm (3.80-5.80) 02/05/18 14:45 Hgb 12.4 gm/dL (12-16) 02/05/18 14:45 Hct 37.4 % (41.0-60) L 02/05/18 14:45 MCV 92.0 fl (80-99) 02/05/18 14:45 MCH 30.5 pg (27.0-31.0) 02/05/18 14:45 MCHC Differential 33.1 pg (28.0-36.0) 02/05/18 14:45 RDW 12.5 % (11.5-20.0) 02/05/18 14:45 Plt Count 170 Th/cmm (150-400) 02/05/18 14:45 MPV 8.7 fl 02/05/18 14:45 Neutrophils % 61.5 % (40.0-80.0) 02/05/18 14:45 Lymphocytes % 26.2 % (20.0-50.0) 02/05/18 14:45 Monocytes % 8.0 % (2.0-10.0) 02/05/18 14:45 Eosinophils % 3.8 % (0.0-5.0) 02/05/18 14:45 Basophils % 0.5 % (0.0-2.0) 02/05/18 14:45 Sodium 135 mEq/L (136-145) L 02/05/18 14:45 Potassium 4.1 mEq/L (3.5-5.1) 02/05/18 14:45 Chloride 104 mEq/L (98-107) 02/05/18 14:45 Carbon Dioxide 21.9 mEq/L (21.0-31.0) 02/05/18 14:45 Anion Gap 13.2 (7.0-16.0) 02/05/18 14:45 BUN 30 mg/dL (7-25) H 02/05/18 14:45 Creatinine 1.7 mg/dL (0.7-1.3) H 02/05/18 14:45 Est GFR ( Amer) TNP 02/05/18 14:45 Est GFR (Non-Af Amer) TNP 02/05/18 14:45 BUN/Creatinine Ratio 17.6 02/05/18 14:45 Glucose 359 mg/dL (70-105) H 02/05/18 14:45 Calcium 8.5 mg/dL (8.6-10.3) L 02/05/18 14:45 Total Bilirubin 0.4 mg/dL (0.3-1.0) 02/05/18 14:45 AST 10 U/L (13-39) L 02/05/18 14:45 ALT 8 U/L (7-52) 02/05/18 14:45 Alkaline Phosphatase 59 U/L (34-104) 02/05/18 14:45 Troponin I 0.01 ng/mL (0.01-0.05) 02/05/18 14:45 Total Protein 7.0 gm/dL (6.0-8.3) 02/05/18 14:45 Albumin 3.9 gm/dL (4.2-5.5) L 02/05/18 14:45 Globulin 3.1 gm/dL 02/05/18 14:45 Albumin/Globulin Ratio 1.3 (1.0-1.8) 02/05/18 14:45 Triglycerides 249 mg/dL (<150) H 02/05/18 14:45 Cholesterol 196 mg/dL (<200) 02/05/18 14:45 LDL Cholesterol Direct 128 mg/dL (75-193) 02/05/18 14:45 HDL Cholesterol 42 mg/dL (23-92) 02/05/18 14:45 TSH 1.24 uIU/ml (0.34-5.60) 02/05/18 14:45 Urine Source CLEAN C 02/05/18 14:40 Urine Color YELLOW 02/05/18 14:40 Urine Clarity CLEAR (CLEAR) 02/05/18 14:40 Urine pH 6.0 (4.6 - 8.0) 02/05/18 14:40 Ur Specific [place] 1.020 (1.005-1.030) 02/05/18 14:40 Urine Protein NEGATIVE mg/dL (NEGATIVE) 02/05/18 14:40 Urine Glucose (UA) >=1000 mg/dL (NEGATIVE) H 02/05/18 14:40 Urine Ketones NEGATIVE mg/dL (NEGATIVE) 02/05/18 14:40 Urine Blood TRACE (NEGATIVE) 02/05/18 14:40 Urine Nitrate NEGATIVE (NEGATIVE) 02/05/18 14:40 Urine Bilirubin NEGATIVE (NEGATIVE) 02/05/18 14:40 Urine Urobilinogen 0.2 E.U./dL (0.2 - 1.0) 02/05/18 14:40 Ur Leukocyte Esterase NEGATIVE (NEGATIVE) 02/05/18 14:40 Urine RBC 2-5 /hpf (0-5) H 02/05/18 14:40 Urine WBC 0-2 /hpf (0-5) 02/05/18 14:40 Ur Epithelial Cells FEW /lpf (FEW) 02/05/18 14:40 Amorphous Sediment FEW URATES (NONE SEEN) 02/05/18 14:40 Urine Bacteria FEW /hpf (NONE SEEN) 02/05/18 14:40 Salicylates < 25.0 mg/L (30.0-100.0) L 02/05/18 14:45 Urine Opiates Screen NEGATIVE (NEGATIVE) 02/05/18 14:40 Urine Methadone Screen NEGATIVE (NEGATIVE) 02/05/18 14:40 Acetaminophen < 10.0 ug/mL (10.0-30.0) L 02/05/18 14:45 Ur Barbiturates Screen NEGATIVE (NEGATIVE) 02/05/18 14:40 Ur Tricyclics Screen NEGATIVE (NEGATIVE) 02/05/18 14:40 Ur Phencyclidine Scrn NEGATIVE (NEGATIVE) 02/05/18 14:40 Amphetamines Screen NEGATIVE (NEGATIVE) 02/05/18 14:40 U Methamphetamines Scrn NEGATIVE (NEGATIVE) 02/05/18 14:40 U Benzodiazepines Scrn NEGATIVE (NEGATIVE) 02/05/18 14:40 U Cocaine Metab Screen NEGATIVE (NEGATIVE) 02/05/18 14:40 U Cannabinoids Screen NEGATIVE (NEGATIVE) 02/05/18 14:40 Ethyl Alcohol < 10 mg/dL (0-10) 02/05/18 14:45 RPR NONREACTIVE (NONREACTIVE) 02/05/18 14:45 - Physical Exam Vitals and I&O: Vital Signs Temp 98 F 02/10/18 14:27 Pulse 60 02/10/18 14:27 Resp 20 02/10/18 14:27 BP 105/63 02/10/18 14:27 Pulse Ox 96 02/10/18 14:27 Intake & Output 02/10/18 02/10/18 02/11/18 06:59 18:59 06:59 Intake Total Balance Intake: Oral Other: # Voids 1 # Bowel Movements 0 Active Medications: Current Medications Acetaminophen (Tylenol) 650 mg PO Q4HR PRN PRN Reason: Mild Pain / Temp above 100 Stop: 04/06/18 18:43 Al Hydrox/Mg Hydrox/Simethicone (Maalox) 30 ml PO Q4HR PRN PRN Reason: GI DISTRESS Stop: 04/06/18 18:43 Amlodipine Besylate (Norvasc) 10 mg PO DAILY [facility] Stop: 04/07/18 08:59 Last Admin: 02/10/18 08:34 Dose: 10 mg Brimonidine Tartrate (Alphagan 0.2% Ophth Soln) 1 drop EACH EYE BID [facility] Stop: 04/07/18 08:59 Last Admin: 02/10/18 16:16 Dose: 1 drop Cilostazol (Pletal) 50 mg PO BID [facility] Stop: 04/07/18 08:59 Last Admin: 02/10/18 16:17 Dose: 50 mg Escitalopram Oxalate (Lexapro) 5 mg PO DAILY [facility]; Protocol Stop: 04/07/18 08:59 Last Admin: 02/10/18 08:33 Dose: 5 mg Glimepiride (Amaryl) 1 mg PO DAILY [facility] Stop: 04/07/18 08:59 Last Admin: 02/10/18 08:33 Dose: 1 mg Insulin Aspart (Novolog Insulin Sliding Scale) 0 units SUBQ ACHS [facility]; Protocol Stop: 04/06/18 20:59 Last Admin: 02/10/18 16:36 Dose: Not Given Latanoprost (Xalatan 0.005% Ophth Soln) 1 drop EACH EYE DAILY [facility] Stop: 04/07/18 08:59 Last Admin: 02/10/18 08:35 Dose: 1 drop Levothyroxine Sodium (Synthroid) 0.05 mg PO QDAC [facility] Stop: 04/07/18 07:29 Last Admin: 02/10/18 06:35 Dose: 0.05 mg Lisinopril (Zestril) 10 mg PO DAILY [facility] Stop: 04/07/18 08:59 Last Admin: 02/10/18 08:34 Dose: 10 mg Lorazepam (Ativan) 0.5 mg PO Q4HR PRN; Protocol PRN Reason: Agitation Stop: 03/07/18 18:43 Magnesium Hydroxide (Milk Of Magnesia) 30 ml PO HS PRN PRN Reason: Constipation Memantine (Namenda) 10 mg PO DAILY [facility] Stop: 04/07/18 08:59 Last Admin: 02/10/18 08:34 Dose: 10 mg Miscellaneous (Neomycin/Polymyxin B Sulf/Hc [Fsybloqs-Ytys-Nt Eye Drops]) 1 drop RIGHT EYE DAILY [facility] Stop: 04/07/18 08:59 Last Admin: 02/10/18 08:42 Dose: Not Given Multivitamins/Vitamin C (Theragran) 1 tab PO DAILY [facility] Stop: 04/07/18 08:59 Last Admin: 02/10/18 08:33 Dose: 1 tab Mupirocin (Bactroban Oint) 1 appl NS BID [facility] Stop: 02/13/18 17:01 Last Admin: 02/10/18 16:17 Dose: 1 appl Quetiapine Fumarate (Seroquel) 25 mg PO HS [facility]; Protocol Stop: 04/09/18 20:59 Last Admin: 02/09/18 20:29 Dose: 25 mg Sitagliptin Phosphate (Januvia) 100 mg PO DAILY [facility] Stop: 04/07/18 08:59 Last Admin: 02/10/18 08:33 Dose: 100 mg Tamsulosin HCl (Flomax) 0.4 mg PO DAILY [facility] Stop: 04/07/18 08:59 Last Admin: 02/10/18 08:33 Dose: 0.4 mg Zolpidem Tartrate (Ambien) 5 mg PO HS PRN PRN Reason: Insomnia Stop: 04/06/18 18:43 General: demented HEENT: NC/AT, PERRLA, EOMI, anicteric sclerae, throat clear Neck: Supple, No JVD, No thyromegaly, +2 carotid pulse wo bruit, No LAD Lungs: CTAB Cardiovascular: RRR, Normal S1, Normal S2, without murmur Abdomen: soft, non-tender, non-distended Extremities: clear Neurological: no change Internal Medicine Assmt/Plan - Assessment Assessment: 1.HTN. 2.DM. 3.HYPOTHYROIDISM. 4.DEMENTIA. - Plan Plan: CONTINUE ON CURRENT MEDICATION AND DIET. Nutritional Asmnt/Malnutr-PDOC - Dietary Evaluation Malnutrition Findings (Please click <Entered> for more info): Nutritional Asmnt/Malnutrition Start: 02/06/18 15: 18 Text: Status: Complete Freq: Protocol: Document 02/06/18 15:30 DESIRE (Rec: 02/06/18 16:08 GURMEETVIRIDIANA JAMINDayanna) Nutritional Asmnt/Malnutrition Patient General Information Nutritional Screening High Risk Diagnosis psychosis Pertinent Medical Hx/Surgical Hx HTN, DM, dyslipidemia, PUD/ GERD, dementia, psychosis, hypothyroidism, benign prostatic hypertrophy Subjective Information BS 359 upon admission. Pt sleeping w/ lunch on table at time of visit. Per EMR, pt finished 100% of dinner last night. Asked RN who states pt ate very well for breakfast today. Current Diet Order/ Nutrition Support CCHO 60 gm Pertinent Medications maalox, novolog, synthroid, MOM, theragran, seroquel, Januvia Pertinent Labs 02/05: Na 135, glucose 359, BUN 30, Cr 1.7, Ca 8.5, Alb 3. 9, triglycerides 249-252 Nutritional Hx/Data Height 1.65 m Height (Calculated Centimeters) 165.1 Current Weight (lbs) 82.1 kg Weight (Calculated Kilograms) 82.1 Weight (Calculated Grams) 52011.2 [place] Body Weight 136 lb Body Mass Index (BMI) 30.1 Weight Status Obese GI Symptoms GI Symptoms None Last BM none noted Difficult in: None Food Allergies No Skin Integrity/Comment: lon tran 22 Estimated Nutritional Goals BEE in Kcals: Adj wt of IBW Calories/Kcals/Kg 25-30 (based on adj wt 67 kg) Kcals Calculated Protein: Adj wt of IBW Protein g/k.0 Protein Calculated 67 g Fluid: ml (1 ml/kcal) Nutritional Problem 1. Problem Problem Altered nutrition related lab values Etiology hx of DM and dyslipidemia, electrolyte imbalance Signs/Symptoms: Na 135, glucose 359, Ca 8.5, triglycerides 249-252 Malnutrition Alert Is there a minimum of two criteria No selected? Query Text:Check all the applicable criteria. A minimum of two criteria are recommended for diagnosis of either severe or non-severe malnutrition. Malnutrition Related to Morbid Obesity Malnutrition related to morbid obesity No Intervention/Recommendation Comments 1. Continue with CCHO 60 gm diet as ordered and replace electrolytes as needed 2. Monitor PO intake, wt, labs and skin integrity 3. F/U as moderate risk in 3-5 days, 02/09-02/11 Expected Outcomes/Goals Expected Outcomes/Goals 1. PO intake to meet at least 75% of all meals 2. Wt stability, skin to remain intact, labs to approach normal limits reviewed by Keyana Sullivan
--- NOTE | 2018-02-11 02:39 | Progress Notes ---
DATE: 02/10/2018 PSYCHIATRIC PROGRESS NOTE SUBJECTIVE: Staff was spoken to. The patient is interviewed. Mood is noted to be less irritable. Paranoia is noted, but denies any command hallucinations. The patient is hopeful that they are going to be finding a place for him and he can continue treatment on an outpatient basis. ASSESSMENT: The patient's depression is resolving, but paranoia is there. PLAN: To continue the patient with the supportive therapy and followup. JOB# [id number]
[2018-02-11] MEDS: INSULIN ASPART SLIDING SCALE 100 UNITS/ML UNIT SUBQ SCH ×3 (06:38→11:33)
[2018-02-11] MEDS: Levothyroxine 0.05 Mg Tab PO SCH (06:40)
[2018-02-11] MEDS: Escitalopram Oxalate 5 mg Tab PO SCH (08:39)
[2018-02-11] MEDS: Multivitamin Tab PO SCH (08:40)
[2018-02-11] MEDS: NEOMYCIN RIGHT EYE SCH (08:41)
[2018-02-11] MEDS: POLYMYXIN B SULF RIGHT EYE SCH (08:41)
[2018-02-11] MEDS: [UNRECOGNIZED DRUG - OTHER] RIGHT EYE SCH (08:41)
--- NOTE | 2018-02-11 21:43 | Progress Notes ---
DATE: 02/11/2018 SUBJECTIVE: Staff was spoken to. The patient is interviewed. Mood is noted to be anxious. The patient's insight and judgment noted to be fair. Impulse control is also noted to be fair. No side effects to the medications are noted. ASSESSMENT: The patient is stabilizing. PLAN: To discharge the patient today for followup on outpatient basis. JOB# [id number]
== END 2018-02-11 15:35 | DRG 884 ==
LOC: ER 14:16 → GERO2 16:45
PROVIDERS: ADMIT Psychiatry & Neurology Psychiatry; ATTEND Psychiatry & Neurology Psychiatry
DX: F03.91 Unspecified dementia, unspecified severity, with behavioral disturbance (principal); E11.65 Type 2 diabetes mellitus with hyperglycemia; I10 Essential (primary) hypertension; E78.5 Hyperlipidemia, unspecified; K21.9 Gastro-esophageal reflux disease without esophagitis; F29 Unspecified psychosis not due to a substance or known physiological condition; E86.0 Dehydration; F32.9 Major depressive disorder, single episode, unspecified; E03.9 Hypothyroidism, unspecified; N40.0 Benign prostatic hyperplasia without lower urinary tract symptoms; Z83.3 Family history of diabetes mellitus; Z82.49 Family history of ischemic heart disease and other diseases of the circulatory system
CPT/HCPCS: 36415-UA; 80053-TC; 80061-TC; 80307; 80320-TC; 80329-TC; 81001-TC; 83036-90; 84443-TC; 84484-TC; 85025-TC; 86592-TC; 93005; J1815; Z7610